=== PATIENT | male | born 1985 | race Caucasian/White ===

== ENCOUNTER 2023-08-25 03:56 | Inpatient (IN) | payer SELFPAY, BC, OTHER ==
[2023-08-25 04:05] LABS: Actual Bicarbonate (HCO3a) 20.5 mEq/L (22-28); Analyzer IN Cardio ER; Base Excess (BEa) -3.5 mEq/L (-2.0 to +3.0); CO2 Tension 34.4 mmHg (35.0-45.0); Calcium, Ionized (arterial) 1.08 mmol/L (1.12-1.30); Carboxyhemoglobin (COHb) 2.5 gm% (0.0-3.0); Hematocrit-ABG 44 % (42.0-52.0); O2 Tension (PaO2), arterial 384.8 mmHg (80.0-100.0); Potassium - ABG Lab 3.73 mmol/L (3.70-5.30); pH, Arterial 7.394 (7.35-7.45)
[2023-08-25 04:08] LABS: Puncture Site RR
[2023-08-25] MEDS ORDERED: fentaNYL 50 mcg/mL 1 mL Vial ONE (04:14)
[2023-08-25 04:19] LABS: #Eosinphils 0.2 thou/uL (0.0-0.7); #Monocytes 0.8 thou/uL (0.11-0.59); #Neutrophils 8.6 thou/uL (1.40-6.50); %Basophils 0.3 % (0.0-1.0); %Eosinophils 1.4 % (0.0-10.0); %Lymphocytes 18.8 % (21.0-51.0); %Monocytes 6.4 % (0.0-10.0); %Neutrophils 71.5 % (42.0-75.0); Hematocrit 41.8 % (42.0-52.0); Hemoglobin 14.2 g/dL (14.0-18.0); Mean Corpuscular Hemoglobin 31.1 pg (27.0-31.0); Mean Corpuscular Volume 91.5 fl (78.0-98.0); Mean Platelet Volume 9.3 fL (7.4-10.4); Platelet Count 256 10x3/uL (130-400); RBC Distribution Width 13.1 % (11.5-14.5); Red Blood Cell (RBC) Count 4.57 mill/uL (4.70-6.10)
[2023-08-25] MEDS ORDERED: Fentanyl CADD 100 ML IV SCH (04:30)
[2023-08-25 04:32] LABS: INR-International Normal Ratio 1.1; Prothrombin Time 14.6 sec (12.0-14.7)
[2023-08-25 04:34] LABS: PTT 24.9 sec (22.9-36.1)
[2023-08-25] MEDS ORDERED: Ondansetron PF 4 MG/2 ML Vial IVP PRN (04:37)
[2023-08-25] MEDS ORDERED: fentaNYL 50 mcg/mL 1 mL Vial SLOW IVP PRN (04:42)
[2023-08-25 05:13] LABS: Amphetamine Not Detected (NotDetected); Barbiturates Screen Not Detected (NotDetected); Benzodiazepine Screen Not Detected (NotDetected); Cocaine Metabolite Screen Not Detected (NotDetected); Methadone Not Detected (NotDetected); Methamphetamine Not Detected (NotDetected); Opiate Screen Not Detected (NotDetected); Oxycodone Screen Not Detected (NotDetected); Phencyclidine (PCP) Not Detected (NotDetected); THC/Cannabinoid Screen Detected (NotDetected); Tricyclic Screen Not Detected (NotDetected)
[2023-08-25] MEDS ORDERED: Ipratropium/Albuterol 3 ML NEB NEB PRN (05:16)
[2023-08-25] MEDS ORDERED: Electrolyte Replacement Protocol 1 EACH IVPB SCH (05:16)
[2023-08-25 05:19] LABS: ALT (SGPT) 38 U/L (8-55); AST (SGOT) 39 U/L (5-34); Acetaminophen Less than 10 mcg/mL (10.0-30.0); Alcohol 255.1 mg/dL (Less than 10); Alkaline Phosphatase 74 U/L (40-110); Anion Gap 17 mmol/L (10-20); BUN (Urea Nitrogen) 9 mg/dL (8.9-20.6); Bilirubin, Total 0.3 mg/dL (0.2-1.2); Calc. Creatinine Clearance 0 mL/min (70-130); Calcium 7.6 mg/dL (7.8-10.44); Carbon Dioxide 17 mmol/L (22-29); Chloride 111 mmol/L (98-107); Estimated GFR 113; Globulin 2.4 g/dL (2.4-3.5); Glucose 100 mg/dL (70-105); Lipase 27 U/L (8-78); Potassium 4.1 mmol/L (3.5-5.1); Protein, Total 6.4 g/dL (6.0-8.3); Salicylate Less than 8.0 mg/dL (15.0-30.0); Sodium 141 mmol/L (136-145)
[2023-08-25 05:21] LABS: Troponin I Less than 0.010 ng/mL (< 0.028)
[2023-08-25] MEDS ORDERED: Propofol BOLUS 1,000 MG/100 ML VIAL IV PRN (05:30)
[2023-08-25] MEDS ORDERED: DISCONTINUE PREVIOUS NARCOTIC PAIN MEDICATIONS AND BENZODIAZEPINES FS SCH (05:30)
[2023-08-25] MEDS ORDERED: Morphine 2 MG/ML VIAL SLOW IVP PRN (05:30)
[2023-08-25] MEDS ORDERED: Fentanyl BOLUS 250 ML IVPB PRN (05:30)
[2023-08-25] MEDS ORDERED: Propofol 1,000 MG/100 ML VIAL IV PRN (05:30)
[2023-08-25] MEDS ORDERED: Ventilator Sedation Protocol 1 EACH FS SCH (05:30)
[2023-08-25 05:38] LABS: Bacteria/HPF None Seen HPF (None Seen); Bilirubin Negative (Negative); Blood, Urine 1+ (Negative); CAUTI Indications for Culture Pelvic or flank pain; Clarity Clear (Clear); Glucose, Urine (Dipstick) Normal (Negative); Ketone, Urine Negative (Negative); Leukocyte Negative Leu/uL (Negative); Nitrite Negative (Negative); Protein, Urine (Dipstick) Negative (Neg-Trace); RBC/HPF 0-3 HPF (0-3); Specific Gravity, Urine 1.007 (1.002-1.036); Squamous Epithelial None Seen HPF (0-3); Urobilinogen Normal mg/dL (Less than 2); WBC/HPF 0-3 HPF (0-3)
[2023-08-25 05:42] LABS: Urine Culture Reflex No No
[2023-08-25] MEDS ORDERED: Sodium Chloride 0.9% 1,000 ML IV SCH (06:15)
[2023-08-25] MEDS: Lactated Ringer's 1,000 ML IV SCH ×2 (07:45→16:58)
[2023-08-25] MEDS: Famotidine/PF 20 mg/2ml Vial SLOW IVP SCH ×2 (08:00→21:07)
[2023-08-25] MEDS ORDERED: Iopamidol 370 76% 100 ML VIAL ONE (09:15)
[2023-08-25] MEDS ORDERED: FLU VACC QS2023-24(6MOS UP)/PF 60 MCG/0.5 ML SYRINGE IM ONE (12:00)
[2023-08-25] MEDS: Lorazepam 2 MG/ML VIAL SLOW IVP PRN (16:46)
[2023-08-25] MEDS: Dexmedetomidine 400 MCG, Admixture Fee 1 EACH in Sodium Chloride 0.9% 96 ML IVPB SCH (19:35)
[2023-08-26] MEDS: Lactated Ringer's 1,000 ML IV SCH ×3 (02:41→23:59)
[2023-08-26] MEDS: Lorazepam 2 MG/ML VIAL SLOW IVP PRN ×2 (02:58→21:14)
[2023-08-26 05:33] LABS: #Neutrophils 8.7 thou/uL (1.40-6.50); %Basophils 0.3 % (0.0-1.0); %Eosinophils 0.3 % (0.0-10.0); %Monocytes 8.5 % (0.0-10.0); %Neutrophils 75.5 % (42.0-75.0); Hematocrit 37.4 % (42.0-52.0); Hemoglobin 12.2 g/dL (14.0-18.0); Mean Corpuscular HGB CONC 32.6 g/dL (32.0-36.0); Mean Corpuscular Hemoglobin 30.7 pg (27.0-31.0); Mean Platelet Volume 9.5 fL (7.4-10.4); Platelet Count 206 10x3/uL (130-400); RBC Distribution Width 13.1 % (11.5-14.5); Red Blood Cell (RBC) Count 3.98 mill/uL (4.70-6.10); White Blood Cell (WBC) Count 11.5 10x3/uL (4.8-10.8)
[2023-08-26 06:18] LABS: ALT (SGPT) 25 U/L (8-55); AST (SGOT) 25 U/L (5-34); Albumin 3.3 g/dL (3.5-5.0); Alkaline Phosphatase 75 U/L (40-110); Anion Gap 10 mmol/L (10-20); BUN (Urea Nitrogen) 12 mg/dL (8.9-20.6); Bilirubin, Total 0.8 mg/dL (0.2-1.2); Calc. Creatinine Clearance 179 mL/min (70-130); Calcium 8.1 mg/dL (7.8-10.44); Carbon Dioxide 25 mmol/L (22-29); Chloride 107 mmol/L (98-107); Estimated GFR 117; Globulin 2.3 g/dL (2.4-3.5); Glucose 114 mg/dL (70-105); Potassium 3.8 mmol/L (3.5-5.1); Protein, Total 5.6 g/dL (6.0-8.3); Sodium 138 mmol/L (136-145)
[2023-08-26] MEDS: Dexmedetomidine 400 MCG, Admixture Fee 1 EACH in Sodium Chloride 0.9% 96 ML IVPB SCH ×2 (07:14→17:03)
[2023-08-26] MEDS: Famotidine/PF 20 mg/2ml Vial SLOW IVP SCH ×2 (09:45→20:10)
[2023-08-26] MEDS: Thiamine HCl 200 MG/2 ML VIAL SLOW IVP SCH (20:10)
[2023-08-27] MEDS: Lorazepam 2 MG/ML VIAL SLOW IVP PRN ×4 (02:02→16:59)
[2023-08-27 03:36] LABS: #Basophils 0.1 thou/uL (0.0-0.2); #Eosinphils 0.1 thou/uL (0.0-0.7); #Monocytes 1.4 thou/uL (0.11-0.59); #Neutrophils 10.6 thou/uL (1.40-6.50); %Basophils 0.4 % (0.0-1.0); %Eosinophils 0.9 % (0.0-10.0); %Lymphocytes 17.1 % (21.0-51.0); %Monocytes 9.4 % (0.0-10.0); %Neutrophils 71.7 % (42.0-75.0); Hematocrit 40.5 % (42.0-52.0); Hemoglobin 13.4 g/dL (14.0-18.0); Mean Corpuscular HGB CONC 33.1 g/dL (32.0-36.0); Mean Corpuscular Hemoglobin 30.4 pg (27.0-31.0); Mean Corpuscular Volume 91.8 fl (78.0-98.0); Mean Platelet Volume 9.6 fL (7.4-10.4); Platelet Count 192 10x3/uL (130-400); RBC Distribution Width 12.1 % (11.5-14.5); Red Blood Cell (RBC) Count 4.41 mill/uL (4.70-6.10); White Blood Cell (WBC) Count 14.8 10x3/uL (4.8-10.8)
[2023-08-27 04:04] LABS: ALT (SGPT) 37 U/L (8-55); AST (SGOT) 77 U/L (5-34); Albumin 3.6 g/dL (3.5-5.0); Alkaline Phosphatase 76 U/L (40-110); Anion Gap 14 mmol/L (10-20); BUN (Urea Nitrogen) 10 mg/dL (8.9-20.6); Bilirubin, Total 0.8 mg/dL (0.2-1.2); Calc. Creatinine Clearance 174 mL/min (70-130); Calcium 8.4 mg/dL (7.8-10.44); Carbon Dioxide 19 mmol/L (22-29); Chloride 110 mmol/L (98-107); Estimated GFR 116; Globulin 2.7 g/dL (2.4-3.5); Glucose 90 mg/dL (70-105); Potassium 3.7 mmol/L (3.5-5.1); Protein, Total 6.3 g/dL (6.0-8.3); Sodium 139 mmol/L (136-145)
[2023-08-27] MEDS: Dexmedetomidine 400 MCG, Admixture Fee 1 EACH in Sodium Chloride 0.9% 96 ML IVPB SCH ×2 (04:05→16:03)
[2023-08-27] MEDS: Lactated Ringer's 1,000 ML IV SCH ×2 (08:47→18:13)
[2023-08-27] MEDS: Famotidine/PF 20 mg/2ml Vial SLOW IVP SCH ×2 (08:47→20:11)
[2023-08-27] MEDS: Folic Acid 1 MG TAB PO SCH (08:51)
[2023-08-27] MEDS: Multivit, Therapeutic 1 TAB PO SCH (08:51)
[2023-08-27] MEDS: Fluticasone Propionate Nasal Spray 16 gm Bottle NASAL SCH (10:43)
[2023-08-27] MEDS: Thiamine HCl 200 MG/2 ML VIAL SLOW IVP SCH (20:15)
[2023-08-28] MEDS: Lactated Ringer's 1,000 ML IV SCH ×2 (04:09→16:26)
[2023-08-28] MEDS: Dexmedetomidine 400 MCG, Admixture Fee 1 EACH in Sodium Chloride 0.9% 96 ML IVPB SCH ×3 (04:09→22:08)
[2023-08-28 04:48] LABS: #Basophils 0.1 thou/uL (0.0-0.2); #Eosinphils 0.5 thou/uL (0.0-0.7); #Monocytes 1.2 thou/uL (0.11-0.59); #Neutrophils 7.8 thou/uL (1.40-6.50); %Basophils 0.5 % (0.0-1.0); %Lymphocytes 20.6 % (21.0-51.0); %Monocytes 10.2 % (0.0-10.0); %Neutrophils 64.4 % (42.0-75.0); Hematocrit 39.1 % (42.0-52.0); Hemoglobin 13.9 g/dL (14.0-18.0); Mean Corpuscular HGB CONC 35.5 g/dL (32.0-36.0); Mean Corpuscular Hemoglobin 31.1 pg (27.0-31.0); Mean Corpuscular Volume 87.5 fl (78.0-98.0); Mean Platelet Volume 9.6 fL (7.4-10.4); Platelet Count 225 10x3/uL (130-400); Red Blood Cell (RBC) Count 4.47 mill/uL (4.70-6.10); White Blood Cell (WBC) Count 12.1 10x3/uL (4.8-10.8)
[2023-08-28 05:23] LABS: ALT (SGPT) 37 U/L (8-55); AST (SGOT) 54 U/L (5-34); Albumin 3.7 g/dL (3.5-5.0); Alkaline Phosphatase 73 U/L (40-110); Anion Gap 12 mmol/L (10-20); BUN (Urea Nitrogen) 11 mg/dL (8.9-20.6); Bilirubin, Total 1.1 mg/dL (0.2-1.2); Calc. Creatinine Clearance 173 mL/min (70-130); Calcium 8.5 mg/dL (7.8-10.44); Carbon Dioxide 24 mmol/L (22-29); Chloride 107 mmol/L (98-107); Estimated GFR 116; Globulin 2.7 g/dL (2.4-3.5); Glucose 87 mg/dL (70-105); Potassium 3.4 mmol/L (3.5-5.1); Protein, Total 6.4 g/dL (6.0-8.3); Sodium 140 mmol/L (136-145)
[2023-08-28] MEDS: Potassium Chloride 20 MEQ in Premix 1 BAG IVPB SCH ×2 (08:06→10:41)
[2023-08-28] MEDS: Famotidine/PF 20 mg/2ml Vial SLOW IVP SCH ×2 (08:07→21:22)
[2023-08-28] MEDS: Fluticasone Propionate Nasal Spray 16 gm Bottle NASAL SCH (08:07)
[2023-08-28] MEDS ORDERED: Fluticasone Propionate Nasal Spray 16 gm Bottle NASAL SCH (09:00)
[2023-08-28] MEDS: Lorazepam 2 MG/ML VIAL SLOW IVP PRN ×2 (10:00→23:08)
[2023-08-28] MEDS: Multivit, Therapeutic 1 TAB PO SCH (10:12)
[2023-08-28] MEDS: Folic Acid 1 MG TAB PO SCH (10:12)
[2023-08-28 16:26] LABS: Potassium 3.6 mmol/L (3.5-5.1)
[2023-08-28] MEDS: Thiamine HCl 200 MG/2 ML VIAL SLOW IVP SCH (20:12)
[2023-08-29] MEDS: Lactated Ringer's 1,000 ML IV SCH ×3 (01:06→20:00)
[2023-08-29 03:19] LABS: #Basophils 0.1 thou/uL (0.0-0.2); #Eosinphils 0.4 thou/uL (0.0-0.7); #Monocytes 1.4 thou/uL (0.11-0.59); #Neutrophils 9.9 thou/uL (1.40-6.50); %Basophils 0.4 % (0.0-1.0); %Eosinophils 2.5 % (0.0-10.0); %Lymphocytes 15.7 % (21.0-51.0); %Monocytes 10.1 % (0.0-10.0); %Neutrophils 70.9 % (42.0-75.0); Hematocrit 40.6 % (42.0-52.0); Hemoglobin 14.2 g/dL (14.0-18.0); Mean Corpuscular Hemoglobin 30.3 pg (27.0-31.0); Mean Corpuscular Volume 86.6 fl (78.0-98.0); Mean Platelet Volume 9.4 fL (7.4-10.4); Platelet Count 257 10x3/uL (130-400); RBC Distribution Width 12.2 % (11.5-14.5); Red Blood Cell (RBC) Count 4.69 mill/uL (4.70-6.10)
[2023-08-29 03:51] LABS: ALT (SGPT) 34 U/L (8-55); AST (SGOT) 32 U/L (5-34); Albumin 3.7 g/dL (3.5-5.0); Alkaline Phosphatase 75 U/L (40-110); Anion Gap 17 mmol/L (10-20); BUN (Urea Nitrogen) 12 mg/dL (8.9-20.6); Calc. Creatinine Clearance 167 mL/min (70-130); Calcium 8.6 mg/dL (7.8-10.44); Carbon Dioxide 21 mmol/L (22-29); Chloride 103 mmol/L (98-107); Estimated GFR 115; Globulin 2.9 g/dL (2.4-3.5); Glucose 100 mg/dL (70-105); Potassium 3.5 mmol/L (3.5-5.1); Protein, Total 6.6 g/dL (6.0-8.3); Sodium 137 mmol/L (136-145)
[2023-08-29 03:58] LABS: Bilirubin, Total 0.9 mg/dL (0.2-1.2)
[2023-08-29] MEDS: Folic Acid 1 MG TAB PO SCH (08:31)
[2023-08-29] MEDS: Fluticasone Propionate Nasal Spray 16 gm Bottle NASAL SCH (08:31)
[2023-08-29] MEDS: carBAMazepine 200 MG TAB PO SCH ×3 (08:31→15:46)
[2023-08-29] MEDS: Amantadine HCl 100 mg Capsule PO SCH ×2 (08:31→20:02)
[2023-08-29] MEDS: Famotidine/PF 20 mg/2ml Vial SLOW IVP SCH ×2 (08:31→20:01)
[2023-08-29] MEDS: Multivit, Therapeutic 1 TAB PO SCH (08:31)
[2023-08-29] MEDS: Lorazepam 2 MG/ML VIAL SLOW IVP PRN (11:03)
[2023-08-29] MEDS: Potassium Chloride 20 MEQ in Premix 1 BAG IVPB SCH ×2 (12:40→15:46)
[2023-08-29] MEDS: Dexmedetomidine 400 MCG, Admixture Fee 1 EACH in Sodium Chloride 0.9% 96 ML IVPB SCH (20:00)
[2023-08-29] MEDS: QUEtiapine 25 MG TAB PO SCH (20:02)
[2023-08-29] MEDS: Thiamine 100 MG TAB PO SCH (20:06)
[2023-08-30] MEDS: Lactated Ringer's 1,000 ML IV SCH (03:38)
[2023-08-30] MEDS: QUEtiapine 25 MG TAB PO SCH (07:40)
[2023-08-30] MEDS: Multivit, Therapeutic 1 TAB PO SCH (07:40)
[2023-08-30] MEDS: Amantadine HCl 100 mg Capsule PO SCH (07:40)
[2023-08-30] MEDS: Folic Acid 1 MG TAB PO SCH (07:40)
[2023-08-30] MEDS: Lorazepam 2 MG/ML VIAL SLOW IVP PRN ×4 (07:40→15:30)
[2023-08-30] MEDS: Famotidine/PF 20 mg/2ml Vial SLOW IVP SCH ×2 (07:40→21:19)
[2023-08-30] MEDS: carBAMazepine 200 MG TAB PO SCH ×3 (07:40→18:06)
[2023-08-30] MEDS: Fluticasone Propionate Nasal Spray 16 gm Bottle NASAL SCH (07:41)
[2023-08-30 08:03] LABS: #Basophils 0.1 thou/uL (0.0-0.2); #Eosinphils 0.4 thou/uL (0.0-0.7); #Monocytes 1.8 thou/uL (0.11-0.59); #Neutrophils 10.5 thou/uL (1.40-6.50); %Basophils 0.4 % (0.0-1.0); %Eosinophils 2.4 % (0.0-10.0); %Lymphocytes 13.9 % (21.0-51.0); %Monocytes 11.9 % (0.0-10.0); Hematocrit 41.5 % (42.0-52.0); Hemoglobin 14.5 g/dL (14.0-18.0); Mean Corpuscular HGB CONC 34.9 g/dL (32.0-36.0); Mean Corpuscular Hemoglobin 30.7 pg (27.0-31.0); Mean Corpuscular Volume 87.7 fl (78.0-98.0); Mean Platelet Volume 9.4 fL (7.4-10.4); Platelet Count 263 10x3/uL (130-400); RBC Distribution Width 12.4 % (11.5-14.5); Red Blood Cell (RBC) Count 4.73 mill/uL (4.70-6.10); White Blood Cell (WBC) Count 14.9 10x3/uL (4.8-10.8)
[2023-08-30 08:35] LABS: Albumin 3.8 g/dL (3.5-5.0)
[2023-08-30 08:36] LABS: Chloride 105 mmol/L (98-107); Potassium 3.7 mmol/L (3.5-5.1); Sodium 136 mmol/L (136-145)
[2023-08-30 08:37] LABS: Calcium 8.8 mg/dL (7.8-10.44); Glucose 115 mg/dL (70-105)
[2023-08-30 08:38] LABS: Globulin 3.1 g/dL (2.4-3.5); Protein, Total 6.9 g/dL (6.0-8.3)
[2023-08-30 08:39] LABS: Anion Gap 16 mmol/L (10-20); Bilirubin, Total 0.6 mg/dL (0.2-1.2); Carbon Dioxide 19 mmol/L (22-29)
[2023-08-30 08:40] LABS: Alkaline Phosphatase 74 U/L (40-110)
[2023-08-30 08:41] LABS: Calc. Creatinine Clearance 165 mL/min (70-130); Estimated GFR 117
[2023-08-30 08:42] LABS: BUN (Urea Nitrogen) 10 mg/dL (8.9-20.6)
[2023-08-30 08:43] LABS: ALT (SGPT) 32 U/L (8-55); AST (SGOT) 17 U/L (5-34)
[2023-08-30] MEDS: cefTRIAXone\\ROCEPHIN 1 GM in Sodium Chloride 0.9% 100 ML IVPB SCH (12:00)
[2023-08-30] MEDS ORDERED: Scopolamine 1 mg/72 hour Patch TD SCH (12:00)
[2023-08-30 12:39] LABS: Base Excess (BEa) -0.2 mEq/L (-2.0 to +3.0); Calcium, Ionized (arterial) 1.15 mmol/L (1.12-1.30); Hematocrit-ABG 44 % (42.0-52.0); Potassium - ABG Lab 3.92 mmol/L (3.70-5.30); pH, Arterial 7.484 (7.35-7.45)
[2023-08-30 12:59] LABS: Puncture Site RBA
[2023-08-30] MEDS ORDERED: Propofol 1,000 MG/100 ML VIAL IV ONE (15:03)
[2023-08-30] MEDS: Propofol 1,000 MG/100 ML VIAL IV PRN ×3 (15:19→23:57)
[2023-08-30] MEDS ORDERED: Electrolyte Replacement Protocol 1 EACH FS ONE (15:29)
[2023-08-30] MEDS ORDERED: Ventilator Sedation Protocol 1 EACH FS ONE (15:29)
[2023-08-30] MEDS ORDERED: Etomidate 40 MG (20 mL) VIAL IVP SCH (15:30)
[2023-08-30] MEDS ORDERED: Etomidate 40 MG (20 mL) VIAL ONE (15:34)
[2023-08-30] MEDS ORDERED: DISCONTINUE PREVIOUS NARCOTIC PAIN MEDICATIONS AND BENZODIAZEPINES FS SCH (15:45)
[2023-08-30] MEDS ORDERED: Rocuronium Bromide 10 MG/ML (10ML VIAL) IVP SCH (15:45)
[2023-08-30] MEDS ORDERED: Fentanyl BOLUS 250 ML IVPB PRN (15:45)
[2023-08-30] MEDS ORDERED: Propofol BOLUS 1,000 MG/100 ML VIAL IV PRN (15:45)
[2023-08-30] MEDS ORDERED: Morphine 2 MG/ML VIAL SLOW IVP PRN (15:45)
[2023-08-30] MEDS: Sodium Chloride 0.9% 1,000 ML IV SCH ×2 (16:51→21:19)
[2023-08-30] MEDS: Fentanyl CADD 100 ML IV SCH (16:55)
[2023-08-30] MEDS: Thiamine 100 MG TAB PO SCH (21:19)
[2023-08-31] MEDS: Propofol 1,000 MG/100 ML VIAL IV PRN ×5 (04:04→22:33)
[2023-08-31 04:40] LABS: #Basophils 0.1 thou/uL (0.0-0.2); #Eosinphils 0.7 thou/uL (0.0-0.7); #Monocytes 1.4 thou/uL (0.11-0.59); #Neutrophils 5.7 thou/uL (1.40-6.50); %Basophils 0.5 % (0.0-1.0); %Eosinophils 6.6 % (0.0-10.0); %Lymphocytes 25.7 % (21.0-51.0); %Monocytes 13.5 % (0.0-10.0); %Neutrophils 53.2 % (42.0-75.0); Hematocrit 38.1 % (42.0-52.0); Mean Corpuscular HGB CONC 34.1 g/dL (32.0-36.0); Mean Platelet Volume 9.4 fL (7.4-10.4); Platelet Count 261 10x3/uL (130-400); RBC Distribution Width 12.5 % (11.5-14.5); White Blood Cell (WBC) Count 10.7 10x3/uL (4.8-10.8)
[2023-08-31 05:06] LABS: ALT (SGPT) 25 U/L (8-55); AST (SGOT) 17 U/L (5-34); Albumin 3.4 g/dL (3.5-5.0); Alkaline Phosphatase 68 U/L (40-110); Anion Gap 12 mmol/L (10-20); BUN (Urea Nitrogen) 10 mg/dL (8.9-20.6); Bilirubin, Total 0.5 mg/dL (0.2-1.2); Calc. Creatinine Clearance 146 mL/min (70-130); Calcium 8.4 mg/dL (7.8-10.44); Carbon Dioxide 25 mmol/L (22-29); Chloride 102 mmol/L (98-107); Estimated GFR 113; Glucose 100 mg/dL (70-105); Potassium 3.6 mmol/L (3.5-5.1); Protein, Total 6.4 g/dL (6.0-8.3); Sodium 135 mmol/L (136-145)
[2023-08-31 05:10] LABS: Mean Corpuscular Volume 90.7 fl (78.0-98.0)
[2023-08-31 07:13] LABS: Actual Bicarbonate (HCO3a) 22.2 mEq/L (22-28); CO2 Tension 36.2 mmHg (35.0-45.0); Calcium, Ionized (arterial) 1.12 mmol/L (1.12-1.30); Carboxyhemoglobin (COHb) 0.5 gm% (0.0-3.0); Hematocrit-ABG 40 % (42.0-52.0); Hemoglobin (Hb) 13.6 g/dL (14.0-18.0); O2 Tension (PaO2), arterial 101.6 mmHg (80.0-100.0); Potassium - ABG Lab 3.58 mmol/L (3.70-5.30); pH, Arterial 7.405 (7.35-7.45)
[2023-08-31 07:35] LABS: Puncture Site RRA
[2023-08-31] MEDS: Fluticasone Propionate Nasal Spray 16 gm Bottle NASAL SCH (08:29)
[2023-08-31] MEDS: Famotidine/PF 20 mg/2ml Vial SLOW IVP SCH ×2 (08:29→20:17)
[2023-08-31] MEDS: Multivit, Therapeutic 1 TAB PO SCH (08:29)
[2023-08-31] MEDS: carBAMazepine 200 MG TAB PO SCH ×3 (08:29→16:23)
[2023-08-31] MEDS: Folic Acid 1 MG TAB PO SCH (08:29)
[2023-08-31] MEDS: cefTRIAXone\\ROCEPHIN 1 GM in Sodium Chloride 0.9% 100 ML IVPB SCH (11:43)
[2023-08-31] MEDS: Fentanyl CADD 100 ML IV SCH (15:17)
[2023-08-31] MEDS: Sodium Chloride 0.9% 1,000 ML IV SCH (20:17)
[2023-08-31] MEDS: Thiamine 100 MG TAB PO SCH (20:17)
[2023-09-01] MEDS: Propofol 1,000 MG/100 ML VIAL IV PRN ×3 (03:25→20:08)
[2023-09-01 06:52] LABS: #Eosinphils 0.8 thou/uL (0.0-0.7); #Monocytes 1.3 thou/uL (0.11-0.59); #Neutrophils 6.6 thou/uL (1.40-6.50); %Basophils 0.4 % (0.0-1.0); %Eosinophils 6.8 % (0.0-10.0); %Lymphocytes 22.7 % (21.0-51.0); %Monocytes 11.3 % (0.0-10.0); %Neutrophils 58.4 % (42.0-75.0); Hematocrit 39.7 % (42.0-52.0); Hemoglobin 13.4 g/dL (14.0-18.0); Mean Corpuscular HGB CONC 33.8 g/dL (32.0-36.0); Mean Corpuscular Hemoglobin 30.9 pg (27.0-31.0); Mean Corpuscular Volume 91.7 fl (78.0-98.0); Mean Platelet Volume 9.5 fL (7.4-10.4); Platelet Count 294 10x3/uL (130-400); RBC Distribution Width 12.3 % (11.5-14.5); Red Blood Cell (RBC) Count 4.33 mill/uL (4.70-6.10); White Blood Cell (WBC) Count 11.2 10x3/uL (4.8-10.8)
[2023-09-01 07:12] LABS: ALT (SGPT) 25 U/L (8-55); AST (SGOT) 17 U/L (5-34); Albumin 3.4 g/dL (3.5-5.0); Alkaline Phosphatase 69 U/L (40-110); Anion Gap 13 mmol/L (10-20); BUN (Urea Nitrogen) 8 mg/dL (8.9-20.6); Bilirubin, Total 0.3 mg/dL (0.2-1.2); Calc. Creatinine Clearance 147 mL/min (70-130); Calcium 8.6 mg/dL (7.8-10.44); Carbon Dioxide 25 mmol/L (22-29); Chloride 104 mmol/L (98-107); Estimated GFR 112; Globulin 3.2 g/dL (2.4-3.5); Glucose 94 mg/dL (70-105); Potassium 4.4 mmol/L (3.5-5.1); Protein, Total 6.6 g/dL (6.0-8.3); Sodium 138 mmol/L (136-145)
[2023-09-01 07:25] LABS: Actual Bicarbonate (HCO3a) 24.8 mEq/L (22-28); CO2 Tension 36.9 mmHg (35.0-45.0); Calcium, Ionized (arterial) 1.17 mmol/L (1.12-1.30); Carboxyhemoglobin (COHb) 0.8 gm% (0.0-3.0); Hematocrit-ABG 46 % (42.0-52.0); Hemoglobin (Hb) 15.8 g/dL (14.0-18.0); O2 Tension (PaO2), arterial 82.4 mmHg (80.0-100.0); Potassium - ABG Lab 4.21 mmol/L (3.70-5.30); pH, Arterial 7.445 (7.35-7.45)
[2023-09-01 07:37] LABS: ALV-art Gradient 156.675 mmHg (0-20); Puncture Site RRA
[2023-09-01] MEDS: carBAMazepine 200 MG TAB PO SCH ×3 (09:35→19:01)
[2023-09-01] MEDS: Folic Acid 1 MG TAB PO SCH (09:35)
[2023-09-01] MEDS: Multivit, Therapeutic 1 TAB PO SCH (09:35)
[2023-09-01] MEDS: Fluticasone Propionate Nasal Spray 16 gm Bottle NASAL SCH (10:01)
[2023-09-01] MEDS: Famotidine/PF 20 mg/2ml Vial SLOW IVP SCH ×2 (10:01→20:08)
[2023-09-01] MEDS ORDERED: Bupivacaine PF 0.5% 30 ML VIAL ONE (11:34)
[2023-09-01] MEDS ORDERED: Lidocaine 2% PF 5 ML VIAL ONE (11:34)
[2023-09-01] MEDS ORDERED: EPINEPHrine 1 MG/ML VIAL ONE (11:34)
[2023-09-01] MEDS ORDERED: PROPOFOL 20 ML ONE (11:39)
[2023-09-01] MEDS ORDERED: Rocuronium Bromide 10 MG/ML (10ML VIAL) ONE ×2 (11:40→13:20)
[2023-09-01] MEDS ORDERED: Midazolam HCl 2 mg/2 ml Vial ONE (11:40)
[2023-09-01] MEDS ORDERED: Rocuronium Bromide 50 MG/5 ML VIAL IVP SCH (13:30)
[2023-09-01] MEDS: cefTRIAXone\\ROCEPHIN 1 GM in Sodium Chloride 0.9% 100 ML IVPB SCH (13:39)
[2023-09-01] MEDS: Sodium Chloride 0.9% 1,000 ML IV SCH (14:41)
[2023-09-01] MEDS: Fentanyl CADD 100 ML IV SCH (14:52)
[2023-09-01] MEDS ORDERED: CEFAZOLIN 2 GM in Sodium Chloride 0.9% 100 ML IVPB SCH (15:15)
[2023-09-01] MEDS: Acetaminophen 650 MG/20.3 ML UDCUP PO PRN (19:02)
[2023-09-01] MEDS: Thiamine 100 MG TAB PO SCH (20:08)
[2023-09-01] MEDS: Lorazepam 2 MG/ML VIAL SLOW IVP PRN (22:19)
[2023-09-02] MEDS: Sodium Chloride 0.9% 1,000 ML IV SCH ×2 (01:23→16:50)
[2023-09-02 04:41] LABS: #Eosinphils 0.2 thou/uL (0.0-0.7); #Monocytes 1.5 thou/uL (0.11-0.59); #Neutrophils 9.9 thou/uL (1.40-6.50); %Basophils 0.2 % (0.0-1.0); %Eosinophils 1.4 % (0.0-10.0); %Lymphocytes 12.7 % (21.0-51.0); %Monocytes 11.2 % (0.0-10.0); Hematocrit 39.5 % (42.0-52.0); Hemoglobin 13.3 g/dL (14.0-18.0); Mean Corpuscular HGB CONC 33.7 g/dL (32.0-36.0); Mean Corpuscular Hemoglobin 30.8 pg (27.0-31.0); Mean Corpuscular Volume 91.4 fl (78.0-98.0); Mean Platelet Volume 9.2 fL (7.4-10.4); Platelet Count 317 10x3/uL (130-400); RBC Distribution Width 12.2 % (11.5-14.5); Red Blood Cell (RBC) Count 4.32 mill/uL (4.70-6.10); White Blood Cell (WBC) Count 13.4 10x3/uL (4.8-10.8)
[2023-09-02 05:11] LABS: ALT (SGPT) 19 U/L (8-55); AST (SGOT) 13 U/L (5-34); Albumin 3.5 g/dL (3.5-5.0); Alkaline Phosphatase 69 U/L (40-110); Anion Gap 13 mmol/L (10-20); BUN (Urea Nitrogen) 10 mg/dL (8.9-20.6); Bilirubin, Total 0.4 mg/dL (0.2-1.2); Calc. Creatinine Clearance 167 mL/min (70-130); Calcium 8.6 mg/dL (7.8-10.44); Carbon Dioxide 24 mmol/L (22-29); Chloride 103 mmol/L (98-107); Estimated GFR 116; Globulin 3.2 g/dL (2.4-3.5); Glucose 119 mg/dL (70-105); Potassium 3.8 mmol/L (3.5-5.1); Protein, Total 6.7 g/dL (6.0-8.3); Sodium 136 mmol/L (136-145)
[2023-09-02 06:57] LABS: Actual Bicarbonate (HCO3a) 24.8 mEq/L (22-28); Base Excess (BEa) 0.9 mEq/L (-2.0 to +3.0); CO2 Tension 37.5 mmHg (35.0-45.0); Calcium, Ionized (arterial) 1.14 mmol/L (1.12-1.30); Carboxyhemoglobin (COHb) 0.5 gm% (0.0-3.0); Hematocrit-ABG 52 % (42.0-52.0); Hemoglobin (Hb) 17.7 g/dL (14.0-18.0); Potassium - ABG Lab 3.89 mmol/L (3.70-5.30); pH, Arterial 7.438 (7.35-7.45)
[2023-09-02 07:01] LABS: ALV-art Gradient 164.325 mmHg (0-20); Puncture Site LRA
[2023-09-02] MEDS: carBAMazepine 200 MG TAB PO SCH ×3 (08:53→16:50)
[2023-09-02] MEDS: Folic Acid 1 MG TAB PO SCH (08:53)
[2023-09-02] MEDS: Multivit, Therapeutic 1 TAB PO SCH (08:53)
[2023-09-02] MEDS: Famotidine/PF 20 mg/2ml Vial SLOW IVP SCH ×2 (08:54→21:38)
[2023-09-02] MEDS: Fluticasone Propionate Nasal Spray 16 gm Bottle NASAL SCH (08:54)
[2023-09-02] MEDS: cefTRIAXone\\ROCEPHIN 1 GM in Sodium Chloride 0.9% 100 ML IVPB SCH (11:45)
[2023-09-02] MEDS: Thiamine 100 MG TAB PO SCH (21:34)
[2023-09-03] MEDS: Acetaminophen 650 MG/20.3 ML UDCUP PO PRN (00:45)
[2023-09-03] MEDS: Sodium Chloride 0.9% 1,000 ML IV SCH (05:06)
[2023-09-03 05:55] LABS: #Basophils 0.1 thou/uL (0.0-0.2); #Eosinphils 0.3 thou/uL (0.0-0.7); #Monocytes 1.9 thou/uL (0.11-0.59); #Neutrophils 9.9 thou/uL (1.40-6.50); %Basophils 0.4 % (0.0-1.0); %Eosinophils 2.4 % (0.0-10.0); %Lymphocytes 12.6 % (21.0-51.0); %Monocytes 13.8 % (0.0-10.0); %Neutrophils 70.4 % (42.0-75.0); Hematocrit 37.8 % (42.0-52.0); Hemoglobin 12.7 g/dL (14.0-18.0); Mean Corpuscular HGB CONC 33.6 g/dL (32.0-36.0); Mean Corpuscular Hemoglobin 30.6 pg (27.0-31.0); Mean Corpuscular Volume 91.1 fl (78.0-98.0); Mean Platelet Volume 9.3 fL (7.4-10.4); Platelet Count 343 10x3/uL (130-400); RBC Distribution Width 12.1 % (11.5-14.5); Red Blood Cell (RBC) Count 4.15 mill/uL (4.70-6.10); White Blood Cell (WBC) Count 14.1 10x3/uL (4.8-10.8)
[2023-09-03 06:23] LABS: ALT (SGPT) 23 U/L (8-55); AST (SGOT) 20 U/L (5-34); Albumin 3.8 g/dL (3.5-5.0); Alkaline Phosphatase 75 U/L (40-110); Anion Gap 12 mmol/L (10-20); BUN (Urea Nitrogen) 14 mg/dL (8.9-20.6); Bilirubin, Total 0.4 mg/dL (0.2-1.2); Calc. Creatinine Clearance 167 mL/min (70-130); Carbon Dioxide 24 mmol/L (22-29); Chloride 104 mmol/L (98-107); Estimated GFR 117; Globulin 3.3 g/dL (2.4-3.5); Glucose 110 mg/dL (70-105); Protein, Total 7.1 g/dL (6.0-8.3); Sodium 136 mmol/L (136-145)
[2023-09-03] MEDS ORDERED: Electrolyte Replacement Protocol FS PRN (07:00)
[2023-09-03] MEDS: carBAMazepine 200 MG TAB PO SCH ×3 (09:04→17:03)
[2023-09-03] MEDS: Folic Acid 1 MG TAB PO SCH (09:04)
[2023-09-03] MEDS: Famotidine/PF 20 mg/2ml Vial SLOW IVP SCH ×2 (09:04→20:04)
[2023-09-03] MEDS: Multivits W-Minerals Liquid 15 ML LIQ PO SCH (09:05)
[2023-09-03] MEDS: Fluticasone Propionate Nasal Spray 16 gm Bottle NASAL SCH (11:34)
[2023-09-04 04:44] LABS: #Basophils 0.1 thou/uL (0.0-0.2); #Eosinphils 0.2 thou/uL (0.0-0.7); #Monocytes 2.3 thou/uL (0.11-0.59); #Neutrophils 12.2 thou/uL (1.40-6.50); %Basophils 0.3 % (0.0-1.0); %Eosinophils 1.2 % (0.0-10.0); %Lymphocytes 10.3 % (21.0-51.0); %Monocytes 13.9 % (0.0-10.0); %Neutrophils 73.9 % (42.0-75.0); Hematocrit 40.3 % (42.0-52.0); Hemoglobin 13.6 g/dL (14.0-18.0); Mean Corpuscular HGB CONC 33.7 g/dL (32.0-36.0); Mean Corpuscular Hemoglobin 30.3 pg (27.0-31.0); Mean Corpuscular Volume 89.8 fl (78.0-98.0); Mean Platelet Volume 9.6 fL (7.4-10.4); Platelet Count 385 10x3/uL (130-400); RBC Distribution Width 12.1 % (11.5-14.5); Red Blood Cell (RBC) Count 4.49 mill/uL (4.70-6.10); White Blood Cell (WBC) Count 16.6 10x3/uL (4.8-10.8)
[2023-09-04 04:59] LABS: ALT (SGPT) 51 U/L (8-55); AST (SGOT) 39 U/L (5-34); Alkaline Phosphatase 88 U/L (40-110); Anion Gap 16 mmol/L (10-20); BUN (Urea Nitrogen) 15 mg/dL (8.9-20.6); Bilirubin, Total 0.5 mg/dL (0.2-1.2); Calc. Creatinine Clearance 162 mL/min (70-130); Calcium 9.4 mg/dL (7.8-10.44); Carbon Dioxide 23 mmol/L (22-29); Chloride 102 mmol/L (98-107); Estimated GFR 116; Globulin 3.9 g/dL (2.4-3.5); Glucose 118 mg/dL (70-105); Potassium 4.4 mmol/L (3.5-5.1); Protein, Total 7.9 g/dL (6.0-8.3); Sodium 137 mmol/L (136-145)
[2023-09-04] MEDS: carBAMazepine 200 MG TAB PO SCH ×3 (08:17→16:06)
[2023-09-04] MEDS: Folic Acid 1 MG TAB PO SCH (08:17)
[2023-09-04] MEDS: Famotidine/PF 20 mg/2ml Vial SLOW IVP SCH ×2 (08:18→20:16)
[2023-09-04] MEDS: Fluticasone Propionate Nasal Spray 16 gm Bottle NASAL SCH (08:18)
[2023-09-04] MEDS: Famotidine 20 MG TAB PO SCH ×2 (08:18→20:15)
[2023-09-04] MEDS: Multivits W-Minerals Liquid 15 ML LIQ PO SCH (08:18)
[2023-09-04] MEDS ORDERED: cefTRIAXone Sodium 1,000 MG in Syringe 0 ML IVPB SCH (10:45)
[2023-09-04] MEDS ORDERED: cefTRIAXone\\ROCEPHIN 1 GM in Sodium Chloride 0.9% 100 ML IVPB SCH (12:00)
[2023-09-04] MEDS: Ipratropium/Albuterol 3 ML NEB NEB SCH ×3 (14:24→23:19)
[2023-09-04] MEDS: Acetaminophen 650 MG/20.3 ML UDCUP PO PRN (20:15)
[2023-09-04] MEDS: Senokot S 8.6-50 MG TAB PO SCH (20:15)
[2023-09-05] MEDS: Ipratropium/Albuterol 3 ML NEB NEB SCH ×3 (07:30→18:27)
[2023-09-05] MEDS: Folic Acid 1 MG TAB PO SCH (09:11)
[2023-09-05] MEDS: Polyethylene Glycol 3350 17 GM Packet PO SCH (09:11)
[2023-09-05] MEDS: Senokot S 8.6-50 MG TAB PO SCH ×2 (09:11→20:21)
[2023-09-05] MEDS: Famotidine 20 MG TAB PO SCH ×2 (09:11→20:21)
[2023-09-05] MEDS: carBAMazepine 200 MG TAB PO SCH ×3 (09:12→16:33)
[2023-09-05] MEDS: Famotidine/PF 20 mg/2ml Vial SLOW IVP SCH (09:12)
[2023-09-05] MEDS: Fluticasone Propionate Nasal Spray 16 gm Bottle NASAL SCH (09:12)
[2023-09-05] MEDS: Multivits W-Minerals Liquid 15 ML LIQ PO SCH (09:15)
[2023-09-05] MEDS: Cefdinir 300 MG CAP PO SCH (20:21)
[2023-09-06] MEDS: Ipratropium/Albuterol 3 ML NEB NEB SCH ×4 (00:07→18:46)
[2023-09-06] MEDS: Fluticasone Propionate Nasal Spray 16 gm Bottle NASAL SCH (09:11)
[2023-09-06] MEDS: Cefdinir 300 MG CAP PO SCH ×2 (09:12→20:53)
[2023-09-06] MEDS: Famotidine 20 MG TAB PO SCH ×2 (09:12→20:53)
[2023-09-06] MEDS: Senokot S 8.6-50 MG TAB PO SCH ×2 (09:12→20:53)
[2023-09-06] MEDS: Folic Acid 1 MG TAB PO SCH (09:12)
[2023-09-06] MEDS: Polyethylene Glycol 3350 17 GM Packet PO SCH (09:12)
[2023-09-06] MEDS: carBAMazepine 200 MG TAB PO SCH ×3 (09:12→17:11)
[2023-09-06] MEDS: Multivits W-Minerals Liquid 15 ML LIQ PO SCH (09:28)
[2023-09-07] MEDS: Ipratropium/Albuterol 3 ML NEB NEB SCH ×3 (01:10→12:05)
[2023-09-07] MEDS: carBAMazepine 200 MG TAB PO SCH ×3 (09:17→16:10)
[2023-09-07] MEDS: Cefdinir 300 MG CAP PO SCH ×2 (09:17→21:04)
[2023-09-07] MEDS: Multivits W-Minerals Liquid 15 ML LIQ PO SCH (09:18)
[2023-09-07] MEDS: Senokot S 8.6-50 MG TAB PO SCH ×2 (09:18→21:04)
[2023-09-07] MEDS: Polyethylene Glycol 3350 17 GM Packet PO SCH (09:18)
[2023-09-07] MEDS: Fluticasone Propionate Nasal Spray 16 gm Bottle NASAL SCH (09:18)
[2023-09-07] MEDS: Famotidine 20 MG TAB PO SCH ×2 (09:18→21:04)
[2023-09-07] MEDS: Folic Acid 1 MG TAB PO SCH (09:18)
[2023-09-07] MEDS ORDERED: Ipratropium/Albuterol 3 ML NEB NEB PRN (12:26)
[2023-09-08] MEDS: Cefdinir 300 MG CAP PO SCH ×2 (11:42→21:02)
[2023-09-08] MEDS: carBAMazepine 200 MG TAB PO SCH ×3 (11:42→17:42)
[2023-09-08] MEDS: Senokot S 8.6-50 MG TAB PO SCH ×2 (11:43→21:02)
[2023-09-08] MEDS: Fluticasone Propionate Nasal Spray 16 gm Bottle NASAL SCH (11:43)
[2023-09-08] MEDS: Famotidine 20 MG TAB PO SCH ×2 (11:43→21:02)
[2023-09-08] MEDS: Multivits W-Minerals Liquid 15 ML LIQ PO SCH (11:43)
[2023-09-08] MEDS: Polyethylene Glycol 3350 17 GM Packet PO SCH (11:43)
[2023-09-08] MEDS: Folic Acid 1 MG TAB PO SCH (11:43)
[2023-09-09] MEDS: Multivits W-Minerals Liquid 15 ML LIQ PO SCH (09:36)
[2023-09-09] MEDS: Polyethylene Glycol 3350 17 GM Packet PO SCH (09:36)
[2023-09-09] MEDS: carBAMazepine 200 MG TAB PO SCH ×3 (09:36→17:45)
[2023-09-09] MEDS: Senokot S 8.6-50 MG TAB PO SCH ×2 (09:36→22:11)
[2023-09-09] MEDS: Folic Acid 1 MG TAB PO SCH (09:37)
[2023-09-09] MEDS: Cefdinir 300 MG CAP PO SCH ×2 (09:37→22:11)
[2023-09-09] MEDS: Fluticasone Propionate Nasal Spray 16 gm Bottle NASAL SCH (09:37)
[2023-09-09] MEDS: Famotidine 20 MG TAB PO SCH ×2 (09:37→22:11)
[2023-09-10] MEDS: Polyethylene Glycol 3350 17 GM Packet PO SCH (09:04)
[2023-09-10] MEDS: Lactulose 20 GM (30 mL) UDCUP PO SCH (09:04)
[2023-09-10] MEDS: Senokot S 8.6-50 MG TAB PO SCH ×2 (09:05→20:46)
[2023-09-10] MEDS: Cefdinir 300 MG CAP PO SCH (09:05)
[2023-09-10] MEDS: Folic Acid 1 MG TAB PO SCH (09:05)
[2023-09-10] MEDS: carBAMazepine 200 MG TAB PO SCH ×3 (09:05→18:45)
[2023-09-10] MEDS: Famotidine 20 MG TAB PO SCH ×2 (09:05→20:34)
[2023-09-10] MEDS: Fluticasone Propionate Nasal Spray 16 gm Bottle NASAL SCH (09:05)
[2023-09-10] MEDS: Multivits W-Minerals Liquid 15 ML LIQ PO SCH (09:08)
[2023-09-10 09:36] LABS: #Basophils 0.1 thou/uL (0.0-0.2); #Eosinphils 0.5 thou/uL (0.0-0.7); #Monocytes 0.9 thou/uL (0.11-0.59); #Neutrophils 6.4 thou/uL (1.40-6.50); %Basophils 0.8 % (0.0-1.0); %Eosinophils 4.6 % (0.0-10.0); %Lymphocytes 21.7 % (21.0-51.0); %Monocytes 8.8 % (0.0-10.0); %Neutrophils 63.6 % (42.0-75.0); Hematocrit 42.1 % (42.0-52.0); Hemoglobin 13.7 g/dL (14.0-18.0); Mean Corpuscular HGB CONC 32.5 g/dL (32.0-36.0); Mean Corpuscular Hemoglobin 30.1 pg (27.0-31.0); Mean Corpuscular Volume 92.5 fl (78.0-98.0); Mean Platelet Volume 9.3 fL (7.4-10.4); Platelet Count 466 10x3/uL (130-400); Red Blood Cell (RBC) Count 4.55 mill/uL (4.70-6.10)
[2023-09-10 10:03] LABS: Anion Gap 15 mmol/L (10-20); BUN (Urea Nitrogen) 23 mg/dL (8.9-20.6); Calc. Creatinine Clearance 132 mL/min (70-130); Calcium 9.6 mg/dL (7.8-10.44); Carbon Dioxide 26 mmol/L (22-29); Chloride 106 mmol/L (98-107); Estimated GFR 112; Glucose 96 mg/dL (70-105); Potassium 4.2 mmol/L (3.5-5.1); Sodium 143 mmol/L (136-145)
[2023-09-11 05:21] VITALS: BMI 25.2
[2023-09-11] MEDS: Famotidine 20 MG TAB PO SCH ×2 (09:40→21:51)
[2023-09-11] MEDS: Lactulose 20 GM (30 mL) UDCUP PO SCH (09:40)
[2023-09-11] MEDS: Folic Acid 1 MG TAB PO SCH (09:40)
[2023-09-11] MEDS: Senokot S 8.6-50 MG TAB PO SCH ×2 (09:40→21:51)
[2023-09-11] MEDS: Polyethylene Glycol 3350 17 GM Packet PO SCH (09:40)
[2023-09-11] MEDS: carBAMazepine 200 MG TAB PO SCH ×3 (09:44→16:58)
[2023-09-11] MEDS: Fluticasone Propionate Nasal Spray 16 gm Bottle NASAL SCH (09:45)
[2023-09-11] MEDS: Multivits W-Minerals Liquid 15 ML LIQ PO SCH (09:47)
[2023-09-12] MEDS: Senokot S 8.6-50 MG TAB PO SCH ×2 (08:41→21:15)
[2023-09-12] MEDS: Polyethylene Glycol 3350 17 GM Packet PO SCH (08:41)
[2023-09-12] MEDS: Famotidine 20 MG TAB PO SCH ×2 (08:41→21:15)
[2023-09-12] MEDS: Lactulose 20 GM (30 mL) UDCUP PO SCH (08:41)
[2023-09-12] MEDS: Folic Acid 1 MG TAB PO SCH (08:42)
[2023-09-12] MEDS: Multivits W-Minerals Liquid 15 ML LIQ PO SCH (08:42)
[2023-09-12] MEDS: carBAMazepine 200 MG TAB PO SCH ×3 (08:42→17:21)
[2023-09-12] MEDS: Fluticasone Propionate Nasal Spray 16 gm Bottle NASAL SCH (08:42)
[2023-09-13] MEDS: Fluticasone Propionate Nasal Spray 16 gm Bottle NASAL SCH (10:33)
[2023-09-13] MEDS: carBAMazepine 200 MG TAB PO SCH ×3 (10:33→17:49)
[2023-09-13] MEDS: Famotidine 20 MG TAB PO SCH ×2 (10:33→21:50)
[2023-09-13] MEDS: Folic Acid 1 MG TAB PO SCH (10:33)
[2023-09-13] MEDS: Lactulose 20 GM (30 mL) UDCUP PO SCH (10:35)
[2023-09-13] MEDS: Polyethylene Glycol 3350 17 GM Packet PO SCH (10:35)
[2023-09-13] MEDS: Senokot S 8.6-50 MG TAB PO SCH ×2 (10:35→21:50)
[2023-09-13] MEDS: Multivits W-Minerals Liquid 15 ML LIQ PO SCH (10:38)
[2023-09-13] MEDS: Acetaminophen 650 MG/20.3 ML UDCUP PO PRN (21:50)
[2023-09-14] MEDS: Lactulose 20 GM (30 mL) UDCUP PO SCH (09:43)
[2023-09-14] MEDS: Fluticasone Propionate Nasal Spray 16 gm Bottle NASAL SCH (09:44)
[2023-09-14] MEDS: Multivits W-Minerals Liquid 15 ML LIQ PO SCH (09:44)
[2023-09-14] MEDS: Folic Acid 1 MG TAB PO SCH (09:44)
[2023-09-14] MEDS: carBAMazepine 200 MG TAB PO SCH ×3 (09:44→17:29)
[2023-09-14] MEDS: Famotidine 20 MG TAB PO SCH ×2 (09:44→21:11)
[2023-09-14] MEDS: Polyethylene Glycol 3350 17 GM Packet PO SCH (09:44)
[2023-09-14] MEDS: Senokot S 8.6-50 MG TAB PO SCH ×2 (09:44→21:11)
[2023-09-15] MEDS: Multivits W-Minerals Liquid 15 ML LIQ PO SCH (09:55)
[2023-09-15] MEDS: Folic Acid 1 MG TAB PO SCH (09:56)
[2023-09-15] MEDS: Fluticasone Propionate Nasal Spray 16 gm Bottle NASAL SCH (09:56)
[2023-09-15] MEDS: Famotidine 20 MG TAB PO SCH ×2 (09:56→20:30)
[2023-09-15] MEDS: carBAMazepine 200 MG TAB PO SCH ×3 (09:56→17:55)
[2023-09-15] MEDS: Senokot S 8.6-50 MG TAB PO SCH ×2 (09:57→20:30)
[2023-09-15] MEDS: Polyethylene Glycol 3350 17 GM Packet PO SCH (09:57)
[2023-09-15] MEDS: Lactulose 20 GM (30 mL) UDCUP PO SCH (09:57)
[2023-09-16] MEDS: Famotidine 20 MG TAB PO SCH ×2 (10:03→20:33)
[2023-09-16] MEDS: Folic Acid 1 MG TAB PO SCH (10:03)
[2023-09-16] MEDS: Fluticasone Propionate Nasal Spray 16 gm Bottle NASAL SCH (10:03)
[2023-09-16] MEDS: Multivits W-Minerals Liquid 15 ML LIQ PO SCH (10:03)
[2023-09-16] MEDS: carBAMazepine 200 MG TAB PO SCH ×3 (10:03→18:21)
[2023-09-16] MEDS: Senokot S 8.6-50 MG TAB PO SCH ×2 (10:04→20:33)
[2023-09-16] MEDS: Polyethylene Glycol 3350 17 GM Packet PO SCH (10:04)
[2023-09-16] MEDS: Lactulose 20 GM (30 mL) UDCUP PO SCH (10:04)
[2023-09-17] MEDS: Famotidine 20 MG TAB PO SCH ×2 (09:02→23:10)
[2023-09-17] MEDS: Multivits W-Minerals Liquid 15 ML LIQ PO SCH (11:15)
[2023-09-17] MEDS: Polyethylene Glycol 3350 17 GM Packet PO SCH (11:15)
[2023-09-17] MEDS: Fluticasone Propionate Nasal Spray 16 gm Bottle NASAL SCH (11:15)
[2023-09-17] MEDS: Folic Acid 1 MG TAB PO SCH (11:15)
[2023-09-17] MEDS: Senokot S 8.6-50 MG TAB PO SCH ×2 (11:16→22:58)
[2023-09-17] MEDS: Acetaminophen 650 MG/20.3 ML UDCUP PO PRN (15:39)
[2023-09-18] MEDS: Folic Acid 1 MG TAB PO SCH (10:10)
[2023-09-18] MEDS: Famotidine 20 MG TAB PO SCH ×2 (10:10→21:00)
[2023-09-18] MEDS: Fluticasone Propionate Nasal Spray 16 gm Bottle NASAL SCH (10:10)
[2023-09-18] MEDS: Multivits W-Minerals Liquid 15 ML LIQ PO SCH (10:11)
[2023-09-18] MEDS: Senokot S 8.6-50 MG TAB PO SCH ×2 (10:11→21:17)
[2023-09-18] MEDS: Polyethylene Glycol 3350 17 GM Packet PO SCH (10:11)
[2023-09-19] MEDS: Fluticasone Propionate Nasal Spray 16 gm Bottle NASAL SCH (11:02)
[2023-09-19] MEDS: Famotidine 20 MG TAB PO SCH ×2 (11:02→20:01)
[2023-09-19] MEDS: Folic Acid 1 MG TAB PO SCH (11:02)
[2023-09-19] MEDS: Multivits W-Minerals Liquid 15 ML LIQ PO SCH (11:03)
[2023-09-19] MEDS: Polyethylene Glycol 3350 17 GM Packet PO SCH (11:04)
[2023-09-19] MEDS: Senokot S 8.6-50 MG TAB PO SCH ×2 (11:04→20:03)
[2023-09-20] MEDS: Famotidine 20 MG TAB PO SCH ×2 (09:57→20:57)
[2023-09-20] MEDS: Folic Acid 1 MG TAB PO SCH (09:58)
[2023-09-20] MEDS: Multivits W-Minerals Liquid 15 ML LIQ PO SCH (09:58)
[2023-09-20] MEDS: Polyethylene Glycol 3350 17 GM Packet PO SCH (10:00)
[2023-09-20] MEDS: Fluticasone Propionate Nasal Spray 16 gm Bottle NASAL SCH (10:00)
[2023-09-20] MEDS: Senokot S 8.6-50 MG TAB PO SCH ×2 (10:00→20:57)
[2023-09-20] MEDS ORDERED: diphenhydrAMINE 12.5 MG/5 ML UDCUP PO SCH (22:12)
[2023-09-20] MEDS ORDERED: ALPRAZolam 0.5 MG TAB PO SCH (22:15)
[2023-09-21] MEDS: Polyethylene Glycol 3350 17 GM Packet PO SCH (08:18)
[2023-09-21] MEDS: Senokot S 8.6-50 MG TAB PO SCH ×2 (08:18→19:28)
[2023-09-21] MEDS: Fluticasone Propionate Nasal Spray 16 gm Bottle NASAL SCH (09:32)
[2023-09-21] MEDS: Folic Acid 1 MG TAB PO SCH (09:32)
[2023-09-21] MEDS: Famotidine 20 MG TAB PO SCH ×2 (09:32→19:28)
[2023-09-21] MEDS: Multivits W-Minerals Liquid 15 ML LIQ PO SCH (10:29)
[2023-09-21] MEDS ORDERED: Multivit, Therapeutic 1 TAB PO SCH (10:30)
[2023-09-21] MEDS ORDERED: diphenhydrAMINE 25 MG CAP PO PRN (18:32)
[2023-09-21] MEDS: QUEtiapine 25 MG TAB PO SCH (19:29)
[2023-09-22] MEDS: Folic Acid 1 MG TAB PO SCH (08:03)
[2023-09-22] MEDS: Famotidine 20 MG TAB PO SCH ×2 (08:03→20:05)
[2023-09-22] MEDS: Senokot S 8.6-50 MG TAB PO SCH ×2 (08:04→20:05)
[2023-09-22] MEDS: Fluticasone Propionate Nasal Spray 16 gm Bottle NASAL SCH (08:04)
[2023-09-22] MEDS: Polyethylene Glycol 3350 17 GM Packet PO SCH (08:04)
[2023-09-22] MEDS: Multivit, Therapeutic 1 TAB PO SCH (08:04)
[2023-09-22] MEDS: QUEtiapine 25 MG TAB PO SCH (20:05)
[2023-09-23] MEDS: Polyethylene Glycol 3350 17 GM Packet PO SCH (08:25)
[2023-09-23] MEDS: Fluticasone Propionate Nasal Spray 16 gm Bottle NASAL SCH (08:25)
[2023-09-23] MEDS: Senokot S 8.6-50 MG TAB PO SCH ×2 (08:25→19:04)
[2023-09-23] MEDS: Multivit, Therapeutic 1 TAB PO SCH (08:25)
[2023-09-23] MEDS: Famotidine 20 MG TAB PO SCH ×2 (08:25→19:05)
[2023-09-23] MEDS: Folic Acid 1 MG TAB PO SCH (08:25)
[2023-09-23] MEDS: QUEtiapine 25 MG TAB PO SCH (19:04)
[2023-09-24] MEDS: Folic Acid 1 MG TAB PO SCH (09:31)
[2023-09-24] MEDS: Multivit, Therapeutic 1 TAB PO SCH (09:31)
[2023-09-24] MEDS: Famotidine 20 MG TAB PO SCH ×2 (09:31→19:07)
[2023-09-24] MEDS: Fluticasone Propionate Nasal Spray 16 gm Bottle NASAL SCH (09:34)
[2023-09-24] MEDS: Polyethylene Glycol 3350 17 GM Packet PO SCH (09:35)
[2023-09-24] MEDS: Senokot S 8.6-50 MG TAB PO SCH ×2 (09:35→19:07)
[2023-09-24] MEDS: QUEtiapine 25 MG TAB PO SCH (19:07)
[2023-09-25] MEDS: Famotidine 20 MG TAB PO SCH ×2 (09:19→19:07)
[2023-09-25] MEDS: Multivit, Therapeutic 1 TAB PO SCH (09:19)
[2023-09-25] MEDS: Folic Acid 1 MG TAB PO SCH (09:19)
[2023-09-25] MEDS: Fluticasone Propionate Nasal Spray 16 gm Bottle NASAL SCH (09:19)
[2023-09-25] MEDS: Polyethylene Glycol 3350 17 GM Packet PO SCH (09:19)
[2023-09-25] MEDS: Senokot S 8.6-50 MG TAB PO SCH ×2 (09:20→19:07)
[2023-09-25 13:35] VITALS: BP 128/92
[2023-09-25] MEDS: QUEtiapine 25 MG TAB PO SCH (19:07)
[2023-09-26 07:52] VITALS: TEMP 97.6
[2023-09-26] MEDS: Folic Acid 1 MG TAB PO SCH (08:47)
[2023-09-26] MEDS: Fluticasone Propionate Nasal Spray 16 gm Bottle NASAL SCH (08:47)
[2023-09-26] MEDS: Polyethylene Glycol 3350 17 GM Packet PO SCH (08:47)
[2023-09-26] MEDS: Multivit, Therapeutic 1 TAB PO SCH (08:47)
[2023-09-26] MEDS: Famotidine 20 MG TAB PO SCH (08:47)
[2023-09-26] MEDS: Senokot S 8.6-50 MG TAB PO SCH (08:48)
[2023-09-26] MEDS: Acetaminophen 650 MG/20.3 ML UDCUP PO PRN (08:48)
== END 2023-09-26 13:17 | DRG 4 ==
LOC: ERS 03:56 → CCU 04:37 → UNDOADMIN 04:37 → IMCU/EMU 08-28 15:47 → CCU 08-30 15:05 → IMCU/EMU 09-06 08:29
PROVIDERS: ADMIT Surgery; ATTEND Surgery
PROC: 0T9B70Z Drainage of Bladder with Drainage Device, Via Natural or Artificial Opening (ICD-10-PCS; principal; 2023-08-25)
PROC: 0DH67UZ Insertion of Feeding Device into Stomach, Via Natural or Artificial Opening (ICD-10-PCS; 2023-08-25)
PROC: 4A133R1 Monitoring of Arterial Saturation, Peripheral, Percutaneous Approach (ICD-10-PCS; 2023-08-25)
PROC: 5A1945Z Respiratory Ventilation, 24-96 Consecutive Hours (ICD-10-PCS; 2023-08-25)
PROC: 0BH18EZ Insertion of Endotracheal Airway into Trachea, Via Natural or Artificial Opening Endoscopic (ICD-10-PCS; 2023-08-30)
PROC: 0B110F4 Bypass Trachea to Cutaneous with Tracheostomy Device, Open Approach (ICD-10-PCS; 2023-09-01)
PROC: 0DH64UZ Insertion of Feeding Device into Stomach, Percutaneous Endoscopic Approach (ICD-10-PCS; 2023-09-01)
PROC: 3E033XZ Introduction of Vasopressor into Peripheral Vein, Percutaneous Approach (ICD-10-PCS; 2023-09-01)
PROC: 5A09357 Assistance with Respiratory Ventilation, Less than 24 Consecutive Hours, Continuous Positive Airway Pressure (ICD-10-PCS; 2023-09-02)
DX: S06.6XAA Traumatic subarachnoid hemorrhage with loss of consciousness status unknown, initial encounter (principal); J69.0 Pneumonitis due to inhalation of food and vomit; J96.01 Acute respiratory failure with hypoxia; G93.40 Encephalopathy, unspecified; E44.0 Moderate protein-calorie malnutrition; V86.95XA Unspecified occupant of 3- or 4- wheeled all-terrain vehicle (ATV) injured in nontraffic accident, initial encounter; F10.129 Alcohol abuse with intoxication, unspecified; Z79.899 Other long term (current) drug therapy; F17.210 Nicotine dependence, cigarettes, uncomplicated
CPT/HCPCS: 36415; 36416; 36600; 51702; 70450; 71045; 71260; 72125; 72170; 74018; 74177; 74230; 80048; 80053; 80306; 80307; 81001; 82805; 83605; 83690; 84484; 85025; 85610; 85730; 86850; 86900; 86901; 93005; 93970; 94002; 94003; 94640; 94660; 96365; 96366; 96376; 99292; C1713; C1889; G0390; J0171; J0665; J0696; J2001; J2060; J2250; J2704; J3010; J3411; J3480; J3490; J7050; J7120; J7620; Q0163; Q9967; S0028

== ENCOUNTER 2023-12-31 12:31 | Outpatient (CLI) | payer BC | END 2023-12-31 12:32 | disposition home or self-care (01) | LOC: EEG 12:31 | PROVIDERS: ATTEND Psychiatry & Neurology Neurology | DX: S06.6X9D Traumatic subarachnoid hemorrhage with loss of consciousness of unspecified duration, subsequent encounter (principal) | CPT/HCPCS: 95816 ==

== ENCOUNTER 2024-01-01 10:49 | Outpatient (CLI) | payer BC | END 2024-01-01 10:50 | disposition home or self-care (01) | LOC: MRI 10:49 | PROVIDERS: ATTEND Psychiatry & Neurology Neurology | DX: S06.6X9D Traumatic subarachnoid hemorrhage with loss of consciousness of unspecified duration, subsequent encounter (principal); R90.89 Other abnormal findings on diagnostic imaging of central nervous system | CPT/HCPCS: 70553 ==